=== PATIENT | female | born 1960 | race Caucasian/White ===

== ENCOUNTER 2019-08-13 18:46 | Emergency (ER) | payer MEDICARE, OTHER ==
[~2019-08-13] VITALS: Ht 162.6 cm; Wt 90.1 kg
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
[2019-08-13] MEDS ORDERED: TETANUS,DIPTH,PERTUSS P/F (BOOSTRIX) 0.5 ML VIAL IM ONE (19:30)
--- NOTE | 2019-08-13 19:32 | Diagnostic Imaging Report ---
Clinical indications: Patient had a hold of chain. Chain got caught on 4-morris and caught on right 3rd digit. Patient has swelling to right 3rd digit. Exam: X-ray of the right 3rd digit, 3 views. Comparison: None. Findings and impression: 1: There is mild swelling adjacent to the distal aspect of the 3rd digit. There is a nondisplaced fracture involving the proximal diametaphysis of the 3rd distal phalanx. 2: There is a small calcification seen adjacent to the radial aspect of the 3rd PIP joint which is of unknown age. Donor site is not visualized. 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 There are severely hypertrophic spurs involving the first IP joint and first CMC joint. There is degenerative disease of the triscaphe region. There is no other fracture or dislocation seen. Dictated by: Dictated on workstation # [id number]
[2019-08-13 20:28] VITALS: BP 152/90
== END 2019-08-13 20:28 | disposition home or self-care (01) ==
LOC: ER FS 18:48
DX: S62.602A Fracture of unspecified phalanx of right middle finger, initial encounter for closed fracture (principal); S61.212A Laceration without foreign body of right middle finger without damage to nail, initial encounter; Z23 Encounter for immunization; W23.1XXA Caught, crushed, jammed, or pinched between stationary objects, initial encounter
CPT/HCPCS: 73140; 90715

== ENCOUNTER 2021-01-28 12:11 | Outpatient (CLI) | payer MEDICARE, OTHER ==
[~2021-01-28] VITALS: Ht 160 cm; Wt 90.8 kg
[2021-01-28] MEDS ORDERED: BUPR300T43 PO (12:53)
[2021-01-28] MEDS ORDERED: HYDR-3922 PO (12:53)
[2021-01-28] MEDS ORDERED: BUSP10TA95 PO (12:53)
[2021-01-28] MEDS ORDERED: MULT-593 PO (12:53)
== END 2021-01-29 07:47 | disposition home or self-care (01) ==
LOC: PREOP 12:11
PROVIDERS: ATTEND Surgery
DX: Z01.818 Encounter for other preprocedural examination (principal)

== ENCOUNTER 2021-02-08 08:43 | Day surgery (SDC) | payer MEDICARE, OTHER ==
[~2021-02-08] VITALS: Ht 160 cm; Wt 90.8 kg
[2021-02-08] VITALS (7 sets, daily range): BP systolic 136–166; BP diastolic 53–90
[~2021-02-08 08:43] MED LIST: BUPR300T43 PO; BUSP10TA95 PO; HYDR-3922 PO; LACTATED RINGERS 1,000 ML IV ONE; MULT-593 PO
[2021-02-08] MEDS ORDERED: LACTATED RINGERS 1,000 ML IV STA (08:48)
[2021-02-08] MEDS ORDERED: PROPOFOL INJECTION 50 ML IV ONE (10:16)
[2021-02-08] MEDS ORDERED: MIDAZOLAM 2 MG/2 ML (VERSED) VIAL ONE (10:16)
--- NOTE | 2021-02-08 10:19 | Progress Note-Pre Operative ---
Pre-Operative Progress Note H&P Reviewed The H&P was reviewed, patient examined and no changes noted. Time Seen by Provider: 10:14 Date H&P Reviewed: Feb 08, 2021 Time H&P Reviewed: 10:14 Pre-Operative Diagnosis: Screening colon ELIDA MCGREGOR DO Feb 08, 2021 10:19
--- NOTE | 2021-02-08 10:40 | Progress Note-Post Operative ---
Post-Operative Progess Note Surgeon (s)/Living Skills Advisor (s) Surgeon ELIDA MCGREGOR DO Living Skills Advisor: ANIBAL Lincoln Pre-Operative Diagnosis Screening colon Post-Operative Diagnosis int hemorrhoids Procedure & Operative Findings Date of Procedure 02/08/21 Procedure Performed/Findings colon Anesthesia Type IV sedation by LITIGATOR Estimated Blood Loss Estimated blood loss (mL): none Specimens/Packing Specimens Removed none ELIDA MCGREGOR DO Feb 08, 2021 10:40
--- NOTE | 2021-02-08 10:41 | Endoscopy Discharge Instruct ---
Endo Procedure/Findings Findings 1.: Internal Hemorrhoids Discharge Instructions - Activity: You might feel a little sleepy until tomorrow. This is due to the me dicine you received to relax you. Until tomorrow, you should: NOT drive a car, operate machinery or power tools. NOT drink any alcoholic beverages. NOT make any important decisions or sign importortant papers. Do not return to work until tomorrow, unless otherwise instructed. Resume previous activities tomorrow. Diet: Start by taking liquids. If you tolerate liquids, advance to solid food. 1.: Colonscopy in 10 years Notify Physician - If you experience excessive bleeding, unusual abdominal pain, fever, or chest pain, contact your doctor immediately. ELIDA MCGREGOR DO Feb 08, 2021 10:41
--- NOTE | 2021-02-08 11:17 | Anesthesia-General Post-Op ---
MAC Patient Condition Mental Status/LOC: Same as Preop Cardiovascular: Satisfactory Nausea/Vomiting: Absent Respiratory: Satisfactory Pain: Controlled Complications: Absent Post Op Complications Complications None Follow Up Care/Instructions Patient Instructions None needed. Anesthesiology Discharge Order Discharge Order Patient is doing well, no complaints, stable vital signs, no apparent adverse anesthesia problems. No complications reported per nursing. JANETH OWEN CRNA Feb 08, 2021 11:17
--- NOTE | 2021-02-08 20:59 | OPERATIVE REPORT ---
DATE OF SERVICE: 02/08/2021 PREOPERATIVE DIAGNOSIS: Screening colonoscopy. POSTOPERATIVE DIAGNOSIS: Internal hemorrhoids. PROCEDURE: Colonoscopy. SURGEON: Sushant Espinoza DO 21 DEALER: None. ANESTHESIA: IV sedation by the BUSINESS SPECIALIST. SPECIMENS: None. BLOOD LOSS: None. FLUIDS: Per anesthesia. POSTOPERATIVE CONDITION: Stable. INDICATION FOR PROCEDURE: The patient is a 60-year-old female who needs a screening colonoscopy. FINDINGS: The patient had internal hemorrhoids. No other obvious pathology. PROCEDURE NOTE: After informed consent was obtained, the patient was brought to the endoscopy suite, placed in bed in left lateral decubitus position. She was administered IV sedation by the BUSINESS SPECIALIST who then monitored her vitals the entire time, heart rate, blood pressure and pulse ox and the scope was then inserted, pushed all the way about 140 cm, able to get to the cecum, took a picture of appendiceal orifice, noted the ileocecal valve and then slowly withdrew the scope insufflating to look circumferentially at the portillo looking the cecum, up the ascending colon to the hepatic flexure, then down the transverse colon, splenic flexure, into the descending colon down to the sigmoid and finally into the rectum, retroflexed in the rectal vault, saw some internal hemorrhoids, took a picture and then removed the scope. The patient tolerated the procedure. She was recovered in endoscopy suite. Job ID: [id number] DocumentID: [id number] Dictated Date: 02/08/2021 17:04:40 Rehab/Pre Vocational Counselor Date: 02/08/2021 20:58:26 Dictated By: SUSHANT ESPINOZA DO
== END 2021-02-08 11:35 | disposition home or self-care (01) ==
LOC: ENDO 08:43
PROVIDERS: ATTEND Surgery
DX: Z12.11 Encounter for screening for malignant neoplasm of colon (principal); K64.8 Other hemorrhoids; I10 Essential (primary) hypertension; G47.33 Obstructive sleep apnea (adult) (pediatric); E66.9 Obesity, unspecified; J45.909 Unspecified asthma, uncomplicated; G43.909 Migraine, unspecified, not intractable, without status migrainosus; M19.90 Unspecified osteoarthritis, unspecified site; F32.9 Major depressive disorder, single episode, unspecified; F41.9 Anxiety disorder, unspecified; E78.00 Pure hypercholesterolemia, unspecified; K21.9 Gastro-esophageal reflux disease without esophagitis; F43.10 Post-traumatic stress disorder, unspecified; Z87.891 Personal history of nicotine dependence; R01.1 Cardiac murmur, unspecified; Z79.891 Long term (current) use of opiate analgesic; Z79.899 Other long term (current) drug therapy; Z80.42 Family history of malignant neoplasm of prostate; Z90.49 Acquired absence of other specified parts of digestive tract; Z98.890 Other specified postprocedural states; Z68.36 Body mass index [BMI] 36.0-36.9, adult